=== PATIENT | female | born 1955 | race Caucasian/White ===

== ENCOUNTER 2025-01-30 14:44 | Outpatient (CLI) | payer MEDICARE, SELFPAY ==
--- NOTE | 2025-01-30 14:53 | XR_ITS ---
WS: [id number] XR lumbar spine f/e only [id number] REASON FOR EXAM: VERTEBROGENIC LOW BACK PAIN FINDINGS: Mildly exaggerated lumbar lordosis. No focal vertebral body abnormality. Intervertebral disc spaces are intact and relatively well preserved. No significant neutral listhesis. No significant vertebral body movement with flexion or extension. XR/XR lumbar spine f/e only [id number] IMPRESSION: Stable lumbar spine without vertebral body or discogenic abnormality.
== END 2025-01-30 14:45 | disposition home or self-care (01) ==
PROVIDERS: PCP Nurse Practitioner; Visit Provider Nurse Practitioner
DX: M54.51 Vertebrogenic low back pain (principal); M40.46 Postural lordosis, lumbar region
CPT/HCPCS: 72120